=== PATIENT | male | born 1945 | race Caucasian/White ===

== ENCOUNTER 2019-10-06 08:49 | Day surgery (SDC) | payer MEDICARE ==
[2019-10-06] MEDS ORDERED: Midazolam 1 MG/ML 2 ML SDV ONE (09:28)
[2019-10-06] MEDS ORDERED: Propofol 200 MG/20 ML SDV ONE (09:28)
[2019-10-06] MEDS ORDERED: fentaNYL 100 MCG/2 ML SDV ONE (09:28)
[2019-10-06] MEDS ORDERED: Glycopyrrolate 0.2 MG/ML 2 ML SDV IVPUSH ONE (10:15)
[2019-10-06] MEDS ORDERED: Dextrose 5%-Lactated Ringers 1,000 ML IV SCH (10:15)
--- NOTE | 2019-10-09 13:25 | OR ---
DATE OF PROCEDURE: 10/06/2019 SURGEON: Cecilio Cruz MD PREOPERATIVE DIAGNOSIS: Indication for screening colonoscopy. POSTOPERATIVE DIAGNOSIS: Normal colonoscopic examination. OPERATIVE PROCEDURE: Flexible colonoscopy. ANESTHESIA: IV sedation. INDICATIONS FOR PROCEDURE: This is a 74-year-old male, presenting for screening colonoscopy. He has no personal or family history of colonic neoplasia. Plan is to proceed with a colonoscopy with biopsies and/or polypectomy as indicated. Potential risks of the procedure including bleeding and perforation were discussed, and the patient wishes to proceed. DETAILS OF PROCEDURE: The patient was taken to the operating room and placed in a left lateral decubitus position. IV sedation was administered, after which the initial digital rectal exam was performed that was unremarkable. Colonoscope was then passed into the rectum with retroflexion revealing uncomplicated hemorrhoidal columns. Scope was eventually passed to the level of the cecum. The prep was quite good with only small liquid and some scattered small portions of solid stool encountered. To that level, no abnormalities were noted. Specifically, there were no diverticula. No areas of colitis. No polyps or signs of neoplasia. Scope was then withdrawn and the above findings were reconfirmed, and the procedure was concluded. With the absence of any family or personal history of colonic neoplasia, next colonoscopy should be roughly in 10 years. [address] the patient at age 84, so at that point, judgment would be warranted regarding his overall health. followup colonoscopy would be warranted. Cecilio Cruz MD /[id number]
== END 2019-10-06 13:01 | disposition home or self-care (01) ==
LOC: JP.SDS 08:49
PROVIDERS: ATTEND Surgery
DX: Z12.11 Encounter for screening for malignant neoplasm of colon (principal); K64.9 Unspecified hemorrhoids; J44.9 Chronic obstructive pulmonary disease, unspecified; F17.200 Nicotine dependence, unspecified, uncomplicated
CPT/HCPCS: G0121; J2250; J2704; J3010; J7121